=== PATIENT | male | born 1990 | race African-American/Black ===

== ENCOUNTER 2017-07-13 10:23 | Emergency (ER) | payer SELFPAY ==
[~2017-07-13] VITALS: Ht 165.1 cm; Wt 57.0 kg
[~2017-07-13 10:23] MED LIST: TRAZ100T50 PO
[2017-07-13 10:35] VITALS: BP 122/68; PULSE 73; RESP 14; TEMP 98.6; O2SAT 98
[2017-07-13] MEDS ORDERED: AZITHROMYCIN PWD FOR SUSP 1 GM PACKET PO ONE (12:45)
[2017-07-13] MEDS ORDERED: IBUPROFEN 600 MG TAB PO ONE (12:45)
[2017-07-13] MEDS ORDERED: LIDOCAINE HCL 1% 50 ML VIAL XX ONE (12:45)
[2017-07-13] MEDS ORDERED: cefTRIAXone 250 MG VIAL IM ONE (12:45)
[2017-07-13] MEDS ORDERED: IBUP-232 PO (12:48)
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
[2017-07-13] MEDS ORDERED: AZITHROMYCIN 250 MG TAB PO ONE (13:00)
[2017-07-13] MEDS ORDERED: LIDOCAINE HCL 1% PF 30 ML VIAL INFIL ONE (13:00)
[2017-07-13 13:35] LABS: AMORPHOUS SEDIMENT, URINE RARE; BACTERIA, URINE RARE /hpf; BILIRUBIN, URINE NEG (NEG); BLOOD, URINE TRACE (NEG); GLUCOSE,URINE 150 mg/dL (NEG); KETONE, URINE NEG (NEG); MUCUS URINE FEW /lpf (OCC); NITRITE,URINE NEG (NEG); PH, URINE 7.5 (5.0-8.5); URINE COLOR YELLOW (YELLW/STRAW); URINE LEUKOCYTE ESTERASE LARGE (NEG)
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
[2017-07-13] MEDS ORDERED: BACT800T5 PO (13:55)
[2017-07-13 14:10] VITALS: RESP 20
== END 2017-07-13 12:49 | disposition home or self-care (01) ==
LOC: NEPK 10:23
DX: M79.661 Pain in right lower leg (principal); G89.29 Other chronic pain; N39.0 Urinary tract infection, site not specified; F32.9 Major depressive disorder, single episode, unspecified; Z20.2 Contact with and (suspected) exposure to infections with a predominantly sexual mode of transmission
CPT/HCPCS: 73590; 81001; 87086; 87491; 87591; 96372; 99284; J0696